=== PATIENT | female | born 1995 | race Two or more races ===

== ENCOUNTER 2020-05-20 13:07 | Inpatient (IN) | payer OTHER ==
[~2020-05-20] VITALS: Ht 162.6 cm; Wt 76.7 kg
[~2020-05-20 13:07] MED LIST: ACETAMINOPHEN500 M1 PO; PREPLUS CA-FE1 EACH PO; SIDEROL TABLET1 EACH PO
[2020-05-20] MEDS ORDERED: PRENATAL TABLE1 EAC1 PO (13:51)
== END 2020-05-22 13:20 | disposition home or self-care (01) | DRG 807 ==
LOC: LDR 13:07 → OB/GYN 16:18
PROVIDERS: ADMIT Specialist; ATTEND Specialist
PROC: 10E0XZZ Delivery of Products of Conception, External Approach (ICD-10-PCS; principal; 2020-05-20)
PROC: 10907ZC Drainage of Amniotic Fluid, Therapeutic from Products of Conception, Via Natural or Artificial Opening (ICD-10-PCS; 2020-05-20)
PROC: 4A1HXCZ Monitoring of Products of Conception, Cardiac Rate, External Approach (ICD-10-PCS; 2020-05-20)
DX: O90.81 Anemia of the puerperium (principal); Z37.0 Single live birth; Z3A.39 39 weeks gestation of pregnancy